=== PATIENT | male | born 1955 | race Caucasian/White ===

== ENCOUNTER 2016-10-31 18:18 | Emergency (ER) | payer OTHER ==
--- NOTE | ~2016-10-31 | ER ---
PATIENT'S NAME: MAKAYLA BLANDON [facility] AGE: 61 Y [address] ROOM: [place] [id number] LOCATION: [facility] ADMIT DATE: 10/31/2016 ER/Outpatient Report DISCHARGE DATE: 10/31/2016 FAMILY PHYSICIAN: PHYSICIAN, NO ATTENDING PHYSICIAN: Sandip Saravia Admission date and time documented on the medical record. I saw the patient at 1835 hours. CHIEF COMPLAINT: Bug bite, left hand. HISTORY OF PRESENT ILLNESS: The patient is a 61-year-old male, who thinks he got bit by a bug on his left hand just proximal to the fifth MP joint of the left hand. He got bit by a bug about 5 to 6 days ago. He has more swelling, redness, and pain. No red streaking. No other injuries. No other bites. No other complaints. The patient is an insulin-dependent diabetic. No other fall or trauma. No headache, eyes, ears, nose, throat, neck, or spine pain. No lightheadedness, dizziness, syncope, or near syncope. No recent colds, coughs, flus, fever, chills, or sweats. No chest pain or shortness of breath. No abdominal pain, nausea, vomiting, diarrhea, or urinary frequency, urgency, or dysuria. No other extremity problems. No other skin problems. Does have a history of insulin-dependent diabetes mellitus. No neuro changes or psych issues. HOME MEDICATIONS: See attached medication list. ALLERGIES: NONE. SOCIAL HISTORY: The patient smokes a pack of cigarettes per day. Nondrinker. SIGNIFICANT PAST MEDICAL HISTORY: Insulin-dependent diabetes mellitus type 2, atherosclerotic ischemic heart disease with coronary artery disease, hypertension, dyslipidemia, gastroesophageal reflux, and tobacco abuse. OPERATIONS: Cardiac catheterization with PTCA and stenting. REVIEW OF SYSTEMS: All systems reviewed by me are negative with the exception of those discussed in the history of present illness. PATIENT'S NAME: MAKAYLA BLANDON [facility] AGE: 61 Y [address] ROOM: [place] [id number] LOCATION: [facility] ADMIT DATE: 10/31/2016 ER/Outpatient Report DISCHARGE DATE: 10/31/2016 FAMILY PHYSICIAN: PHYSICIAN, NO ATTENDING PHYSICIAN: Sandip Saravia PHYSICAL EXAMINATION: VITAL SIGNS: Temperature 98.6 tympanic, pulse 67, respirations 16, blood pressure 126/65, and O2 saturation on room air is 96%. HEENT: Head: Normocephalic. Eyes, ears, nose, throat: Clear. NECK: Negative. SPINE: Negative. LUNGS: Clear. HEART: Regular. ABDOMEN: Soft and nontender. Good bowel tones. EXTREMITIES: No peripheral edema, cyanosis, or deformity. Neurovascularly intact. SKIN: The patient has a raised erythematous swollen tender area just proximal to the left fifth MP joint of the hand. Central bite robert. No drainage. No red streaking. It hurts when he makes a fist or extends his fingers. No noticeable drainage. IMPRESSION: Cellulitis, left hand secondary to a bug bite, dorsal aspect left hand just proximal to the left fifth MP joint. No ascending lymphangitis at this time. Swelling, redness, and pain. PLAN: The patient was given 900 mg of clindamycin IV here in the emergency room. Discharged home. Observation. Activity as tolerated. Keep wound clean. Warm packs. Elevation as needed. Ibuprofen or Aleve as needed for pain. Clindamycin 300 mg 4 times a day for a week. Follow up with personal physician in 7 to 10 days or sooner if needed. Discussion ensued with the patient concerning my findings and recommendations, he understands. MD JEYSON LUCAS/modl /[id number] d: 11/01/16 0007 t: 11/01/16 1810, OUTPATIENT REPORT
== END 2016-10-31 19:48 | disposition disaster alternative care site (69) ==
LOC: GMED 18:18
DX: S60.562A Insect bite (nonvenomous) of left hand, initial encounter (principal); L03.114 Cellulitis of left upper limb; I25.10 Atherosclerotic heart disease of native coronary artery without angina pectoris; E11.9 Type 2 diabetes mellitus without complications; I10 Essential (primary) hypertension; E78.5 Hyperlipidemia, unspecified; F17.210 Nicotine dependence, cigarettes, uncomplicated; K21.9 Gastro-esophageal reflux disease without esophagitis; Z98.890 Other specified postprocedural states; Z95.5 Presence of coronary angioplasty implant and graft; Z79.82 Long term (current) use of aspirin; Z79.899 Other long term (current) drug therapy; Z79.4 Long term (current) use of insulin; W57.XXXA Bitten or stung by nonvenomous insect and other nonvenomous arthropods, initial encounter